=== PATIENT | male | born 1950 | race Caucasian/White ===

== ENCOUNTER 2017-08-03 08:03 | Day surgery (SDC) | payer OTHER ==
[2017-08-03] MEDS: NS 1,000 ML IV (08:00)
[2017-08-03] MEDS ORDERED: PROPOFOL 200 MG/20 ML VIAL As Ordered ×2 (09:03→09:20)
[2017-08-03] MEDS ORDERED: LIDOCAINE 2% INJ 100 MG/5 ML SDV (FOR ANES.) As Ordered (09:16)
[2017-08-03] MEDS ORDERED: ePHEDrine SULFATE 25 MG/5 ML(5MG/ML) SYRINGE As Ordered (09:16)
== END 2017-08-03 09:50 | disposition home or self-care (01) ==
LOC: M SDC 08:03
DX: Z12.11 Encounter for screening for malignant neoplasm of colon (principal); Z86.010 Personal history of colon polyps; I10 Essential (primary) hypertension; Z79.899 Other long term (current) drug therapy; K64.0 First degree hemorrhoids; K57.30 Diverticulosis of large intestine without perforation or abscess without bleeding
CPT/HCPCS: G0105

== ENCOUNTER 2017-09-23 08:37 | Day surgery (SDC) | payer OTHER ==
[2017-09-23] MEDS: ACETYLCHOLINE OPHTH SOLN 1% 2ML (MIOCHOL-E) As Ordered (06:40)
[~2017-09-23 08:37] MED LIST: ACETAMINOPHEN 325 MG TAB PO; DILUENT IV; MANNITOL IV; PROPARACAINE 0.5% OPHTH SOL 15ML OS
[2017-09-23] MEDS: LIDOCAINE 3.5 % 1ML OPHTH TOPICAL GEL OU (09:24)
[2017-09-23] MEDS: CYCLOPENTOLATE 2% OPHTH SOLN 2ML BTL OS (09:25)
[2017-09-23] MEDS: TROPICAMIDE 1% OPHTH SOLN 2ML OS (09:25)
[2017-09-23] MEDS: OFLOXACIN 0.3 % (OCUFLOX) OPTH SOL 5ML OS (09:25)
[2017-09-23] MEDS: PHENYLEPHRINE 2.5% OPHTH SOL 2ML OS (09:25)
[2017-09-23] MEDS ORDERED: fentaNYL 100 MCG/2 ML INJECTION (J3010) As Ordered (10:07)
[2017-09-23] MEDS ORDERED: MIDAZOLAM INJ 2 MG/2 ML VIAL (J2250) As Ordered (10:07)
[2017-09-23] MEDS: BALANCED SALT IRRIGATION SOLUTION 500ML BAG (FOR OR EYE MACHINE) As Ordered (10:08)
[2017-09-23] MEDS: HEALON DUET (HEALON 10MG/ML 0.55ML & HEALON ENDOCOAT 30MG/ML 0.85ML) As Ordered (10:08)
[2017-09-23] MEDS: POVIDONE-IODINE 5% OPHTH PREP SOL 30ML As Ordered (10:08)
[2017-09-23] MEDS: CEFUROXIME 1MG/0.1ML INTRACAMERAL INJ As Ordered (10:09)
[2017-09-23] MEDS: LIDOCAINE 1% SDV 5 ML VIAL As Ordered (10:09)
[2017-09-23] MEDS: PHENYLEPHRINE HCL 10 % OPHTH. SOL 5ML OS (10:09)
[2017-09-23] MEDS ORDERED: GLYCOPYRROLATE INJ 0.2 MG/ML 2 ML VIAL As Ordered (10:13)
[2017-09-23] MEDS ORDERED: AcetaZOLAMIDE 500 MG ER CAP As Ordered (10:52)
[2017-09-23] MEDS ORDERED: AcetaZOLAMIDE 500 MG ER CAP PO (11:00)
[2017-09-23] MEDS: AcetaZOLAMIDE 500MG INJECTION (J1120) IV (11:00)
[2017-09-23] MEDS ORDERED: TRIMETHOBENZAMIDE 300 MG CAP PO (11:00)
[2017-09-23] MEDS ORDERED: KETOROLAC 0.5% OPHTH SOLN OS (11:00)
== END 2017-09-23 11:05 | disposition home or self-care (01) ==
LOC: M SDC 08:37
DX: H25.12 Age-related nuclear cataract, left eye (principal); I10 Essential (primary) hypertension; Z79.899 Other long term (current) drug therapy
CPT/HCPCS: 66984

== ENCOUNTER 2017-09-30 07:24 | Day surgery (SDC) | payer OTHER ==
[~2017-09-30 07:24] MED LIST changes: +AcetaZOLAMIDE 500MG INJECTION (J1120) IV; -DILUENT IV; +MANNITOL 20% BAG 250 ML IV; -MANNITOL IV; +PHENYLEPHRINE HCL 10 % OPHTH. SOL 5ML OD; +PROPARACAINE 0.5% OPHTH SOL 15ML OD; -PROPARACAINE 0.5% OPHTH SOL 15ML OS
[2017-09-30] MEDS: OFLOXACIN 0.3 % (OCUFLOX) OPTH SOL 5ML OD (08:04)
[2017-09-30] MEDS: PHENYLEPHRINE 2.5% OPHTH SOL 2ML OD (08:04)
[2017-09-30] MEDS: CYCLOPENTOLATE 2% OPHTH SOLN 2ML BTL OD (08:04)
[2017-09-30] MEDS: TROPICAMIDE 1% OPHTH SOLN 2ML OD (08:05)
[2017-09-30] MEDS: LIDOCAINE 3.5 % 1ML OPHTH TOPICAL GEL OU (08:05)
[2017-09-30] MEDS ORDERED: fentaNYL 100 MCG/2 ML INJECTION (J3010) As Ordered (09:27)
[2017-09-30] MEDS ORDERED: MIDAZOLAM INJ 2 MG/2 ML VIAL (J2250) As Ordered (09:27)
[2017-09-30] MEDS: POVIDONE-IODINE 5% OPHTH PREP SOL 30ML As Ordered (09:53)
[2017-09-30] MEDS: BALANCED SALT IRRIGATION SOLUTION 500ML BAG (FOR OR EYE MACHINE) As Ordered (09:56)
[2017-09-30] MEDS: CEFUROXIME 1MG/0.1ML INTRACAMERAL INJ As Ordered (09:56)
[2017-09-30] MEDS: HEALON DUET (HEALON 10MG/ML 0.55ML & HEALON ENDOCOAT 30MG/ML 0.85ML) As Ordered (09:56)
[2017-09-30] MEDS: LIDOCAINE 1% SDV 5 ML VIAL As Ordered (09:56)
[2017-09-30] MEDS: ACETYLCHOLINE OPHTH SOLN 1% 2ML (MIOCHOL-E) As Ordered (10:10)
[2017-09-30] MEDS: KETOROLAC 0.5% OPHTH SOLN OD (10:30)
[2017-09-30] MEDS ORDERED: TRIMETHOBENZAMIDE 300 MG CAP PO (10:30)
[2017-09-30] MEDS: AcetaZOLAMIDE 500 MG ER CAP PO (10:42)
== END 2017-09-30 10:47 | disposition home or self-care (01) ==
LOC: M SDC 07:24
DX: H25.11 Age-related nuclear cataract, right eye (principal); H57.03 Miosis; I10 Essential (primary) hypertension; Z79.899 Other long term (current) drug therapy
CPT/HCPCS: 66982

== ENCOUNTER 2023-03-11 08:09 | Day surgery (SDC) | payer MEDICARE ==
[~2023-03-11] VITALS: Ht 175.3 cm; Wt 74.4 kg
[~2023-03-11 08:09] MED LIST changes: -ACETAMINOPHEN 325 MG TAB PO; +AMLO1TAB25 PO; -AcetaZOLAMIDE 500MG INJECTION (J1120) IV; +BISO5TAB14 PO; +IBUP1TAB5 PO; +INDA1.253 PO; +LOSA100T46 PO; -MANNITOL 20% BAG 250 ML IV; +NS 1,000 ML IV ONE; -PHENYLEPHRINE HCL 10 % OPHTH. SOL 5ML OD; -PROPARACAINE 0.5% OPHTH SOL 15ML OD
[2023-03-11] MEDS ORDERED: propofoL 200 MG/20 ML VIAL As Ordered ONE (09:52)
[2023-03-11] MEDS ORDERED: GLYCOPYRROLATE INJ 0.2 MG/ML 2 ML VIAL As Ordered ONE (09:53)
[2023-03-11 10:07] VITALS: TEMP 96.5
[2023-03-11 10:25] VITALS: BP 136/69; O2SAT 97
== END 2023-03-11 10:35 | disposition home or self-care (01) ==
LOC: M OPP 08:09
PROVIDERS: ATTEND Internal Medicine Gastroenterology
DX: Z86.010 Personal history of colon polyps (principal); D12.2 Benign neoplasm of ascending colon; K64.0 First degree hemorrhoids; K57.30 Diverticulosis of large intestine without perforation or abscess without bleeding; Z79.1 Long term (current) use of non-steroidal anti-inflammatories (NSAID); Z79.899 Other long term (current) drug therapy

== ENCOUNTER 2024-09-21 10:35 | Day surgery (SDC) | payer MEDICARE ==
[~2024-09-21] VITALS: Ht 175.3 cm; Wt 74.0 kg
[~2024-09-21 10:35] MED LIST changes: -NS 1,000 ML IV ONE
[2024-09-21 12:20] VITALS: TEMP 97.3
[2024-09-21 12:39] VITALS: BP 159/73; O2SAT 100
== END 2024-09-21 12:52 | disposition home or self-care (01) ==
LOC: M OPP 10:35
PROVIDERS: ATTEND Internal Medicine Gastroenterology
DX: K22.2 Esophageal obstruction (principal); R13.10 Dysphagia, unspecified; Z79.899 Other long term (current) drug therapy